=== PATIENT | male | born 1970 | race Caucasian/White ===

== ENCOUNTER → 2023-04-01 | Outpatient (CLI) | payer SELFPAY | END | disposition home or self-care (01) | LOC: SL 13:32 | PROVIDERS: Visit Provider Nurse Practitioner Family | DX: G47.30 Sleep apnea, unspecified (principal) | CPT/HCPCS: 95806 ==

== ENCOUNTER 2024-05-20 06:55 | Day surgery (SDC) | payer SELFPAY, OTHER ==
[2024-05-20] VITALS (8 sets, daily range): BP systolic 107–137; BP diastolic 76–96; PULSE 69–87; RESP 16–18; TEMP 36.2–36.3; O2SAT 92–98; BMI 36.1
--- NOTE | 2024-05-20 07:09 | PRE.ANES_ITS ---
ASA Classification* ASA Classification ASA Classification: 2 Assessment & Plan Anesthesia* Anesthesia Assessment Anesthesia Assessment: Discussed sedation and/or anesthesia options, risks, benefits, and alternatives with patient/parents/legal guardian/POA. Questions invited. The patient/parents/legal guardian/POA seems to understand and agrees to proceed with anesthesia plan. Reviewed the physical assessment, medical history, allergy history and patient home medications list prior to surgery/procedure/anesthetic and documented any changes. Performed airway and anesthesia risk assessments. 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 When Was Last Pacemaker Check QUESTION #4 FULL TEXT: You/Your Family Experience fever (hyperthermia) with Anesthesia Last Oral Intake Last Oral intake: Last Oral Intake NPO since Meds taken in AM with sips of water? 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 operator Female No 05/18/24 08:56 HX of Motion Sickness No 05/18/24 08:56 HX of N/V After Surgery No 05/18/24 08:56 Non-Smoker Yes 05/18/24 08:56 Duration of Surgery greater No 05/18/24 08:56 than 60 minutes Number of Risk Factors 1 05/18/24 08:56 PONV Score Low Risk 05/18/24 08:56 Height & Weight Height & Weight: Anesthesia: Height & Weight Height 4 ft 4.5 in 04/24/24 08:36 Respiratory Assessment Respiratory Assessment - bondactor machine operator: Respiratory Tract Infection Hx - bondactor machine operator Hx Respiratory Tract Infection No 05/18/24 08:56 STOP Sleep Apnea STOP Sleep Apnea - bondactor machine operator: STOP Sleep Apnea - bondactor machine operator Hx Hypertension Yes: CONTROLLED WITH MED 05/18/24 08:56 Hx Sleep Apnea Yes 05/18/24 08:56 CPAP Yes 05/18/24 08:56 BIPAP No 05/18/24 08:56 Do you snore loudly (louder than talking or can be heard Do you often feel tired/ fatigued/ sleepy during daytime? Has anyone observed you stop breathing during sleep? STOP Results Positive 05/18/24 08:56 QUESTION #5 FULL TEXT : Do you snore loudly (louder than talking or can be heard through closed doors)? 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 Specify any problems Hx of Preganancy in last 3 N/A 05/18/24 08:56 Months Nurse Filling Out Transfusion DSCHRIBER 05/18/24 08:56 & Questions: Date: 05/18/24 05/18/24 08:56 Time: 08:57 05/18/24 08:56 Patient unable to answer at this time (ie. confused, unrespo /Reproduction History /Reproductive History - bondactor machine operator: /Reproductive Hx- bondactor machine operator Hx Now No 05/18/24 08:56 Gestational Age (in weeks): EDC: Hx Hx Para Hx Section SAB No 05/18/24 08:56 Active Medications Active Medications: Current Medications Generic Name Dose Route Start Last Admin Trade Name Freq PRN Reason Stop Dose Admin Lactated Ringer's 1,000 mls @ 15 mls/hr 05/20/24 07:15 IV .Q48H HUMERA PFSH Medical History Wears glasses Gastric reflux Shortness of breath on exertion Non-smoker Leg cramps History of pain when walking HTN (hypertension) Home Medications ?Medication ?Instructions ?Recorded ?Last Taken ?Type aspirin 81 mg tablet,delayed 81 mg PO MOWEFR 04/24/24 05/16/24 History release (Adult Low Dose Aspirin) losartan 25 mg tablet 25 mg PO DAILY 04/24/24 Unknown History omeprazole magnesium 20 mg 20 mg PO DAILY PRN PRN GERD 05/18/24 Unknown History tablet,delayed release (Prilosec OTC) Allergy/AdvReac Type Severity Reaction Status Date / Time No Known Allergies Allergy Verified 05/18/24 08:55 Family History Father Hypertension Surgical History History of placement of ear tubes Hx of myringotomy Social History household members: spouse and children number of children: 8 current occupational status: employed Smoking Status: Never smoker alcohol intake: never substance use type: does not use crystal/shinto: Orthodoxy Review of Systems (Anesthesia) ROS Narrative System reviewed and no additional complaints, except as documented.
[2024-05-20] MEDS: Lactated Ringers 1,000 ML 15 ML IV (07:32)
--- NOTE | 2024-05-20 08:06 | HP.PCM_ITS ---
[facility] - General General Date of Admission: 05/20/24 Date of Service: 05/20/24 Chief Complaint: Screening colonoscopy HPI Narrative MICHAEL JEAN-BAPTISTE, is a 53 M who presents today for screening colonoscopy.. She has a past medical history of mild gastroesophageal reflux disease and hypertension which are both controlled. She is in very good health. [facility] Medical History Wears glasses Gastric reflux Shortness of breath on exertion Non-smoker Leg cramps History of pain when walking HTN (hypertension) Home Medications ?Medication ?Instructions ?Recorded ?Last Taken ?Type aspirin 81 mg tablet,delayed 81 mg PO MOWEFR 04/24/24 05/15/24 History release (Adult Low Dose Aspirin) losartan 25 mg tablet 25 mg PO DAILY 04/24/24 05/19/24 History omeprazole magnesium 20 mg 20 mg PO DAILY PRN PRN GERD 05/18/24 05/19/24 History tablet,delayed release (Prilosec OTC) Allergy/AdvReac Type Severity Reaction Status Date / Time No Known Allergies Allergy Verified 05/20/24 07:14 Family History Father Hypertension Surgical History History of placement of ear tubes Hx of myringotomy Social History household members: spouse and children number of children: 8 current occupational status: employed Smoking Status: Never smoker alcohol intake: never substance use type: does not use crystal/protestant: [place] ROS Review of Systems ROS Unobtainable: other Constitutional Constitutional: Denies fatigue, fever(s), poor appetite, weight gain or weight loss ENT HEENT: Denies mouth lesions Cardiovascular Cardiovascular: Denies abdominal bloating, abdominal edema or abdominal pain Respiratory/Chest Respiratory/Chest: Denies change in mental status, change in phlegm color, chest congestion or chest tightness Gastrointestinal Gastrointestinal: Denies belching, bloating, change in bowel habits, change in stool character, chewing difficulty, coffee ground emesis, constipation, cramping, diarrhea, dyspepsia, dysphagia, early satiety, excessive flatus, fecal incontinence, heartburn, hematemesis, hematochezia, hemorrhoids, loose stools, melena, nausea, odynophagia, rectal bleeding, tenesmus, vomiting or weight changes Genitourinary Genitourinary: Denies abdominal discomfort, burning urination or itching Musculoskeletal Musculoskeletal: Reports as per HPI; Denies muscle weakness or myalgias Integumentary Integumentary: Denies jaundice Neurologic Neurologic: Denies lack of coordination or weakness Psychiatric Psychiatric: Denies confusion, depression, memory loss, mood swings, paranoia or suicidal ideation Endocrine Endocrinology: Denies systems reviewed and no addt'l complaints, except as documented Hematologic/Lymphatic Hematologic/Lymphatic: Denies anemia, easy bleeding, easy bruising or lymphadenopathy Allergic/Immunologic Allergic/Immunologic: Denies systems reviewed and no addt'l complaints, except as documented Vital Signs Vital Signs Vital Signs: 05/20/24 07:15 05/20/24 07:15 Temperature 97.2 F L Temperature Source Temporal Pulse Rate 87 Respiratory Rate 18 Respiratory Pattern Normal Blood Pressure 137/96 H Blood Pressure Mean 109 Blood Pressure Source Monitor Blood Pressure Position Semi-Fowlers Blood Pressure Location Right Arm Pulse Ox 96 Oxygen Delivery Method Room Air Weight Weight: 138 lb 14.259 oz Body Mass Index (BMI) 36.1 Physical Exam Const alert General Appearance: cooperative Orientation / Consciousness: oriented to person HEENT hearing grossly normal bilaterally Head and Scalp: normal to inspection Face and Sinus: face symmetric Nose: external nose normal Mouth: oral and palatal mucosa normal Eyes conjunctivae normal General Eye: normal appearance of both eyes Neck full ROM General: normal visual inspection Lymph Lymphatic: no lymphadenopathy noted Chest inspection of chest normal and palpation of chest normal Chest: symmetrical chest wall rise Resp normal respiratory effort Effort and Inspection: able to speak in complete sentences Cardio regular rate GI non-distended Percussion: normal to percussion Rectal Exam: deferred Neuro Speech: speech normal Gait (Neuro): normal gait Assessment & Plan Assessment/Plan (1) Encounter for screening for malignant neoplasm of colon: PLAN: Plan She was explained alternatives, risk, benefits including outstanding bleeding, infection, sepsis, perforation, need for charge and . The patient will have an ASA of 2.
--- NOTE | 2024-05-20 08:40 | PCM.POST.ANE ---
Anesthesia: Postop Eval I Current Vital Signs Temperature: 97.3 F Pulse Rate: 77 Blood Pressure: 111/80 Respiratory Rate: 16 Pulse Ox: 98 Oxygen Delivery Method: Room Air Assessment Airway patent: Yes Spontaneous unlabored respirations: Yes Mental status: Awake and Calm nausea: No Vomiting: No Anesthesia Complication: No Fluid Hydration Crystalloid volume administer (ml): 500 Total IV fluid infused: 500 Progress Note Anesthesia document: Postop Eval 1 completed: Yes
--- NOTE | 2024-05-20 08:45 | OP.COLON_ITS ---
Patient Name: Gabo Mccarthy Procedure Date: 05/20/2024 8:09 AM Date of : 1970 Age: 53 Procedure: Colonoscopy Indications: Screening for colorectal malignant neoplasm Providers: Vivek Kwon DO Medicines: Monitored Anesthesia Care Patient Profile: This is a 53 year old male. Refer to note in patient chart for documentation of history and physical. Last Colonoscopy: none. The patient's first colonoscopy is today. Complications: No immediate complications. Procedure: Pre-Anesthesia Assessment: - Prior to the procedure, a History and Physical was performed, and patient medications and allergies were reviewed. The patient is competent. The risks and benefits of the procedure and the sedation options and risks were discussed with the patient. All questions were answered and informed consent was obtained. Patient identification and proposed procedure were verified by the physician in the pre-procedure area. Mental Status Examination: alert and oriented. Airway Examination: normal oropharyngeal airway and neck mobility. Respiratory Examination: clear to auscultation. CV Examination: normal. Prophylactic Antibiotics: The patient does not require prophylactic antibiotics. Prior Anticoagulants: The patient has taken no anticoagulant or antiplatelet agents except for NSAID medication. ASA Grade Assessment: II - A patient with mild systemic disease. After reviewing the risks and benefits, the patient was deemed in satisfactory condition to undergo the procedure. The anesthesia plan was to use monitored anesthesia care (MAC). Immediately prior to administration of medications, the patient was re-assessed for adequacy to receive sedatives. The heart rate, respiratory rate, oxygen saturations, blood pressure, adequacy of pulmonary ventilation, and response to care were monitored throughout the procedure. The physical status of the patient was re-assessed after the procedure. After I obtained informed consent, the scope was passed under direct vision. Throughout the procedure, the patient's blood pressure, pulse, and oxygen saturations were monitored continuously. The colonoscope was introduced through the anus and advanced to the cecum, identified by appendiceal orifice and ileocecal valve. The colonoscopy was performed without difficulty. The patient tolerated the procedure well. The quality of the bowel preparation was adequate. The ileocecal valve, appendiceal orifice, and rectum were photographed. Scope In: 8:19:41 AM Scope Withdrawal Time 0 hours 6 minutes 29 seconds Scope Out: 8:27:33 AM Total Procedure Duration Time 0 hours 7 minutes 52 seconds Findings: The perianal and digital rectal examinations were normal. A few small-mouthed diverticula were found in the recto-sigmoid colon and sigmoid colon. The exam was otherwise without abnormality on direct and retroflexion views. Impression: - Diverticulosis in the recto-sigmoid colon and in the sigmoid colon. - The examination was otherwise normal on direct and retroflexion views. - No specimens collected. Recommendation: - Discharge patient to home. - Resume previous diet. - Continue present medications. - Repeat colonoscopy in 10 years for surveillance. Procedure Code(s): --- Professional --- G0121, Colorectal cancer screening; colonoscopy on individual not meeting criteria for high risk CPT copyright 2021 [employer]. All rights reserved. The codes documented in this report are preliminary and upon automobile service station manager review may be revised to meet current compliance requirements. Vivek Kwon DO 05/20/2024 8:45:04 AM This report has been signed electronically. Number of Addenda: 0 Note Initiated On: 05/20/2024 8:09 AM
--- NOTE | 2024-05-20 09:06 | PCM.POSTANE2 ---
Anesthesia Postop Eval I Sum Postop Eval Completion status Anesthesia document: Postop Eval 1 completed: Yes Anesthesia Postop Eval I Summary Anesthesia Postop Eval I Summary: Anesthesia Postop Eval I: Assessment Summary Airway patent Yes 05/20/24 08:41 [email or web address] Spontaneous unlabored Yes 05/20/24 08:41 [email or web address] respirations Mental status Awake,Calm 05/20/24 08:41 [email or web address] nausea No 05/20/24 08:41 [email or web address] Vomiting No 05/20/24 08:41 [email or web address] Anesthesia Postop Eval I: Fluid Summary Crystalloid volume administer 500 05/20/24 08:41 [email or web address] (ml) Colloids volume administered ( ml) Blood Product volume administered (ml) Total IV fluid infused 500 05/20/24 08:41 [email or web address] Anesthesia Postop Eval I: Summary Notes Anesthesia Complication No 05/20/24 08:41 [email or web address] Anesthesia Complication Comment: Post-operative progress note Anesthesia: Postop Eval II Evaluation Mental status: Awake Pain Level: 0 nausea: No Vomiting: No
== END 2024-05-20 09:13 | disposition home or self-care (01) ==
LOC: EN 06:57 → AC 06:57
PROVIDERS: PCP Family Medicine; Referring Provider Family Medicine; Visit Provider Internal Medicine Gastroenterology
PROC: 0DJD8ZZ Inspection of Lower Intestinal Tract, Via Natural or Artificial Opening Endoscopic (ICD-10-PCS; CPT 45378; principal; 2024-05-20 07:55)
DX: Z12.11 Encounter for screening for malignant neoplasm of colon (principal); K57.30 Diverticulosis of large intestine without perforation or abscess without bleeding; I10 Essential (primary) hypertension; K21.9 Gastro-esophageal reflux disease without esophagitis
CPT/HCPCS: G0121; J7120; J2405